=== PATIENT | male | born 1995 | race African-American/Black ===

== ENCOUNTER 2018-12-25 19:12 | Emergency (ER) | payer MEDICAID ==
[~2018-12-25] VITALS: Ht 170.2 cm; Wt 74.8 kg
[2018-12-25 19:30] VITALS: BP 134/79
--- NOTE | 2018-12-25 19:30 | NUR ---
ED Nurse Note: Patient walked in to ER due to itch and sore throat x3 weeks. A per patient he took OTc medications but it doesnt alleviate the symptoms. No stated medical history. No SOB. Afebrile. VSS.
[2018-12-25] MEDS ORDERED: Lidocaine 2% Visc 15ml soln ORAL ONE (19:45)
--- NOTE | 2018-12-25 19:45 | Emergency Room Report ---
History of Present Illness General Chief Complaint: Sore Throat Source: Patient Present Illness HPI 23 YO male presents to the ED c/o itchy throat and what feels like mucus stuck in his throat that he has been unable to clear x almost 3 weeks. Pt. reports initially had nasal congestion. He denied fevers or chills. Denies cough. Pt. denies wheezes, inability to swallow, or pain. Pt. denies rashes. Pt. reports he tried warm salt water several times without relief. He denies swollen or tender lymph nodes. Denies neck pain or stiffness. No other aggravating or relieving factors. Allergies: Coded Allergies: No Known Allergies (Unverified , 12/25/18) Patient History Past Medical History: see triage record Past Surgical History: none Pertinent Family History: none Reviewed Nursing Documentation: PMH: Agreed; PSxH: Agreed Nursing Documentation-PMH Past Medical History: No Stated History Review of Systems All Other Systems: negative except mentioned in HPI Physical Exam Vital Signs Date Time Temp Pulse Resp B/P (MAP) Pulse Ox O2 Delivery O2 Flow Rate FiO2 12/25/18 19:25 97.5 55 16 134/79 (97) 100 Room Air Sp02 EP Interpretation: reviewed, normal General Appearance: well appearing, no apparent distress, alert, GCS 15, non- toxic Head: normocephalic, atraumatic Eyes: bilateral eye normal inspection, bilateral eye PERRL ENT: hearing grossly normal, normal pharynx, normal voice, uvula midline, moist mucus membranes, nasal congestion Neck: full range of motion, other - no stridor Respiratory: chest non-tender, lungs clear, normal breath sounds, no wheezing, speaking full sentences Cardiovascular #1: regular rate, rhythm, no edema Musculoskeletal: back normal, gait/station normal, normal range of motion, non- tender Neurologic: alert, oriented x3, responsive, motor strength/tone normal, sensory intact, speech normal, grossly normal Psychiatric: judgement/insight normal Skin: no rash Lymphatic: no adenopathy Medical Decision Making PA Attestation Dr. Biswas is my supervising Physician whom patient management has been discussed with. Diagnostic Impression: Primary Impression: Irritation of pharynx ER Course 23 YO male presents to the ED c/o itchy throat and what feels like mucus stuck in his throat that he has been unable to clear x almost 3 weeks. Pt. reports initially had nasal congestion. He denied fevers or chills. Denies cough. Pt. denies wheezes, inability to swallow, or pain. Pt. denies rashes. Pt. reports he tried warm salt water several times without relief. He denies swollen or tender lymph nodes. Denies neck pain or stiffness. No other aggravating or relieving factors. Ddx considered but are not limited to: pharyngitis, strep, SEGREGATOR, Matt's angina , URI, allergic reaction, pharyngeal edema Vital signs: are WNL, pt. is afebrile H&PE are most consistent with: irritation of the pharynx possibly secondary to PND. No evidence to suggest bacterial infection, or acute airway compromise. ORDERS: None required at this time as the diagnosis is clinical ED INTERVENTIONS: -Lidocaine PO -I do not identify an emergent condition at this time. With current presentation , pt. is stable for close outpatient follow up and conservative treatment. D/ w pt. to return promptly to ED with worsening or new symptoms.- Pt. verbalizes' understanding and agreement with proposed treatment plan. DISCHARGE: At this time pt. is stable for d/c to home. Will provide printed patient care instructions, and any necessary prescriptions. Care plan and follow up instructions have been discussed with the patient prior to discharge. Last Vital Signs Date Time Temp Pulse Resp B/P (MAP) Pulse Ox O2 Delivery O2 Flow Rate FiO2 12/25/18 19:25 97.5 55 16 134/79 (97) 100 Room Air Disposition: HOME, SELF-CARE Condition: Stable Scripts Diphenhydramine Hcl (BENADRYL ALLERGY) 25 Mg Tablet 25 MG PO Q6HR, #20 TAB Prov: Preeti Nunez 12/25/18 Guaifenesin (Mucinex) 1,200 Mg Tab.er.12h 1200 MG PO Q12HR, #20 TAB Prov: Preeti Nunez 12/25/18 Lidocaine HCl 2% Viscous (Lidocaine HCl 2% Viscous) 100 Ml Solution 10 ML ORAL QID, #120 ML Prov: Preeti Nunez 12/25/18 Patient Instructions: Sore Throat Additional Instructions: Take medications as directed. Follow up with a Primary Care Provider in 3-5 days, even if your symptoms have resolved. --Please review list of primary care clinics, if you do not already have a primary care provider Return sooner to ED if new symptoms occur, or current symptoms become worse. Do not drink alcohol, drive, or operate heavy machinery while taking Benadryl as this may cause drowsiness. - Please note that this Emergency Department Report was dictated using [employer] layer helper technology software, occasionally this can lead to erroneous entry secondary to interpretation by the dictation equipment. Preeti Nunez Dec 25, 2018 19:45
[2018-12-25] MEDS ORDERED: BENADRYL ALLERG25 M1 PO (20:05)
[2018-12-25] MEDS ORDERED: MUCINEX1200 MG PO (20:05)
[2018-12-25] MEDS ORDERED: LIDOCAINE VISC100 ML ORAL (20:05)
[2018-12-25 20:10] VITALS: BP 134/79
--- NOTE | 2018-12-25 20:10 | NUR ---
ED Nurse Note: Pt cleared by ERMD for discharge. DC instructions/prescription was given and explained to pt and verbalized understanding of teachings. All medical deviecs such as ID band removed. Pt is AAO x4, ambulatory and left with all personal belongings.
== END 2018-12-25 20:10 | disposition home or self-care (01) ==
LOC: EMR 19:45
DX: J39.2 Other diseases of pharynx (principal)
CPT/HCPCS: 99282